=== PATIENT | male | born 1950 | race Caucasian/White ===

== ENCOUNTER → 2019-07-22 05:41 | Day surgery (SDC) | payer MEDICARE, BC ==
--- NOTE | 2019-07-17 08:20 | HP ---
CC: Dr. Cartagena * ADMITTING HISTORY AND PHYSICAL: DATE OF ADMISSION: 07/22/19 ADMITTING DIAGNOSES: 1. Hematuria. 2. Bladder lesion. 3. Lesion, prostatic urethra. PLANNED PROCEDURE: Cystoscopy, bladder biopsies, and transurethral resection of prostatic urethral lesion. SURGEON: Dr. Paredes. HISTORY OF PRESENT ILLNESS: Raul Lara is a 69-year-old gentleman, who I had originally evaluated a few months ago because of an episode of gross hematuria. Cystoscopy at that time had revealed a moderately enlarged prostate with a polypoid lesion near the anterior bladder neck, which at that time to me looked like it was part of the benign prostatic enlargement. He was recently seen and had had another episode of gross hematuria after heavy lifting and a repeat cystoscopy showed the persistent polypoid lesion at the anterior bladder neck, in addition there is a small area of hyperemic mucosa in the posterior bladder wall. He is now being brought in for biopsies of the above-described lesions. PAST MEDICAL HISTORY: Unremarkable. PAST SURGICAL HISTORY: Unremarkable. MEDICATIONS ON ADMISSION: Alfuzosin extended release 10 mg a day. ALLERGIES: PENICILLIN (facial swelling). FAMILY HISTORY: Negative for prostate or bladder cancer. SOCIAL HISTORY: Smoking history: He is a former smoker, who quit 40 years ago , with a 5 to 6-pack year smoking history prior to that. REVIEW OF SYSTEMS: He is otherwise in excellent health. There is no history of diabetes mellitus or any other major systemic illness. PHYSICAL EXAMINATION GENERAL: Reveals a pleasant, middle-aged gentleman. VITAL SIGNS: Blood pressure is 150/90, pulse 62 per minute and regular, temperature 97.1, oxygen saturation 98% on room air. LUNGS: Clear bilaterally. CARDIOVASCULAR: Regular rate and rhythm. S1, S2. ABDOMEN: Soft without masses. IMPRESSION: A 69-year-old gentleman with history of episodic gross hematuria, who has a polypoid lesion at the anterior bladder neck, which may be arising from the prostate and an additional area in the posterior bladder wall of hyperemic mucosa. PLAN: Cystoscopy, bladder biopsies, and transurethral resection of prostatic urethral lesion. [id number] #: [id number] MTDD
[~2019-07-22 05:41] MED LIST: Buffered Lidocaine 1% SYRIN* 1 ML/SYRINGE INTRADERM ONE; Chloroprocaine 2%* 20 ML VIAL ONE; Dexamethasone IV* 4 MG/ML 1 ML (4 MG) IV SLOW PU ONE; Dexamethasone IV* 4 MG/ML 1 ML (4 MG) ONE; Famotidine IV* 10 MG/ML 2 ML (20 mg) IV ONE; Famotidine IV* 10 MG/ML 2 ML (20 mg) ONE; Furosemide IV* 10 MG/ML 2 ML VIAL (20 MG) ONE; Lactated Ringers 1000 ML Bag* 1,000 ML IV SCH; Levofloxacin 500 MG IVPREMIX(* 500 MG/100 ML BAG IVPB ONE; Lidocaine 2% JELLY* 6 ML JELLY TOPICAL ONE; Midazolam* 1 MG/ML 5 ML VIAL (5 MG) ONE; Naloxone* 0.4 MG/ML 1 ML VIAL IV PRN; Ondansetron INJ* 2 MG/ML VIAL IV PRN; fentaNYL* 50 MCG/ML 2 ML VIAL (100 MCG VIAL) IV PRN; oxyCODONE/Acetamin 5/325 MG* TAB PO PRN
[2019-07-22 09:47] VITALS: BP 128/81
--- NOTE | 2019-07-22 09:59 | OP ---
CC: Dr. Cartagena * DATE OF OPERATION: 07/22/19 - [facility] DATE OF : 54 SURGEON: Dr. Paredes. ANESTHESIOLOGIST: Dr. Moreno ANESTHESIA: Spinal. PRE-OP DIAGNOSES: 1. Gross hematuria. 2. Bladder-prostate lesion. POST-OP DIAGNOSES: 1. Gross hematuria. 2. Bladder-prostate lesion. OPERATIVE PROCEDURES: Cystoscopy, transurethral resection of bladder-prostate lesion. COMPLICATIONS: None. ESTIMATED BLOOD LOSS: Less than 25 cc. CATHETER: 22-[place] Oseguera. POSTOPERATIVE CONDITION: Stable. OPERATIVE FINDINGS: 1. Normal-appearing bladder with resolution of the previously noted abnormality in the wall of the bladder. 2. Polypoid lesion anterior bladder neck most likely representing benign prostatic hypertrophy. INDICATIONS: Raul Lara is a 69-year-old gentleman who has had intermittent episodes of gross hematuria. I suspect that the bleeding is related to a significant degree of benign prostatic hypertrophy, but he continues to have a persistent abnormality at the anterior bladder neck where there is a small polypoid lesion, which I suspect is part of the overall process of BPH. Because of the recurrence of the episodes of hematuria, he is now being brought in for transurethral resection and biopsies of this lesion. In addition, he has a small area of abnormality in the posterior bladder wall, which may just represent a small transient inflammatory lesion. DESCRIPTION OF PROCEDURE: After induction of spinal anesthesia, the patient was placed in dorsal lithotomy position. Sequential compression devices were in place and functioning. Initial cystoscopy revealed a normal-appearing urethra. The prostate is significantly enlarged with enlargement of the lateral lobes as well as significant median lobe enlargement. The bladder was examined. The right and left ureteral orifices are normal in position and configuration with clear efflux noted. The bladder serna were carefully examined. The previously noted area of hyperemia noted in the posterior bladder wall appears to have resolved and there was no evidence of any mucosal abnormality involving the bladder. Attention was directed to the bladder neck where the polypoid lesion was noted at the anterior bladder neck. On closer inspection to me, it seems that this is probably part of the process of BPH. Using the resectoscope, this area was carefully resected and sent for histopathology. Hemostasis was secured using the coagulating current. At the end of the procedure, hemostasis appeared satisfactory. Depending on the histopathology, if this is BPH and he continues to have hematuria then he may benefit either from 5-alpha reductase inhibitors such as Avodart to try to reduce the prostate size and vascularity or from a formal transurethral resection of the process. A 22-[place] Oseguera was placed for temporary bladder drainage. The patient tolerated the procedure satisfactorily and was transferred back to the recovery area in stable condition. [id number] #: [id number] MTDD
== END | disposition home or self-care (01) ==
LOC: OR 05:41
PROVIDERS: ATTEND Urology
DX: N32.89 Other specified disorders of bladder (principal); R31.0 Gross hematuria; N40.0 Benign prostatic hyperplasia without lower urinary tract symptoms
CPT/HCPCS: 88305; J1100; J1940; J1956; J2250; J2400

== ENCOUNTER 2022-09-06 08:15 | Observation (INO) ==
[~2022-09-06 08:15] MED LIST changes: +Buffered Lidocaine 1% SYRIN 1 ml INTRADERM ONE; -Buffered Lidocaine 1% SYRIN* 1 ML/SYRINGE INTRADERM ONE; -Chloroprocaine 2%* 20 ML VIAL ONE; -Dexamethasone IV* 4 MG/ML 1 ML (4 MG) IV SLOW PU ONE; -Dexamethasone IV* 4 MG/ML 1 ML (4 MG) ONE; +Famotidine IV 10 MG/ML 2 ml VIAL (20 mg) IV ONE; -Famotidine IV* 10 MG/ML 2 ML (20 mg) IV ONE; -Famotidine IV* 10 MG/ML 2 ML (20 mg) ONE; -Furosemide IV* 10 MG/ML 2 ML VIAL (20 MG) ONE; -Lactated Ringers 1000 ML Bag* 1,000 ML IV SCH; +Lactated Ringers 1000 ml BAG 1,000 ML IV SCH; -Levofloxacin 500 MG IVPREMIX(* 500 MG/100 ML BAG IVPB ONE; -Lidocaine 2% JELLY* 6 ML JELLY TOPICAL ONE; -Midazolam* 1 MG/ML 5 ML VIAL (5 MG) ONE; -Naloxone* 0.4 MG/ML 1 ML VIAL IV PRN; -Ondansetron INJ* 2 MG/ML VIAL IV PRN; -fentaNYL* 50 MCG/ML 2 ML VIAL (100 MCG VIAL) IV PRN; -oxyCODONE/Acetamin 5/325 MG* TAB PO PRN
[2022-09-06] MEDS ORDERED: Clindamycin 900 MG/D5W BAG 900 MG/50 ML BAG IVPB ONE (09:02)
[2022-09-06] MEDS ORDERED: Famotidine IV 10 MG/ML 2 ml VIAL (20 mg) ONE (09:03)
[2022-09-06] MEDS ORDERED: fentaNYL 100 mcg/2 ml 50 MCG/ML VIAL ONE ×2 (09:40→09:44)
[2022-09-06] MEDS ORDERED: Ondansetron 4 mg VIAL 2 MG/ML 2 ml VIAL ONE (09:40)
[2022-09-06] MEDS ORDERED: Midazolam 5 mg/5 ml VIAL 1 mg/ml 5 ml VIAL (5 mg) ONE ×2 (09:40→09:44)
[2022-09-06] MEDS ORDERED: Lidocaine 2% PF 5 ML VIAL ONE ×2 (09:40→09:45)
[2022-09-06] MEDS ORDERED: Dexamethasone IV 4 MG/ML VIAL 1 ml VIAL ONE (09:40)
[2022-09-06] MEDS ORDERED: ROPIVACAINE 5 MG/ML 30 ML BTL (0.5%) ONE (09:45)
[2022-09-06] MEDS ORDERED: Acetaminophen IV 1 GM/100ML 1,000 MG/100 ML BAG IV ONE (11:06)
[2022-09-06] MEDS ORDERED: Ondansetron 4 mg VIAL 2 MG/ML 2 ml VIAL IV PRN ×2 (11:39→14:24)
[2022-09-06] MEDS ORDERED: Naloxone 0.4 mg VIAL 0.4 mg/ml 1 ml VIAL IV PRN (11:39)
[2022-09-06] MEDS ORDERED: fentaNYL 100 mcg/2 ml 50 MCG/ML VIAL IV PRN (11:39)
[2022-09-06] MEDS ORDERED: Phenylephrine IV 10 MG/ML 1 ml VIAL ONE (11:43)
[2022-09-06] MEDS ORDERED: Ropivacaine 5 MG/ML 20 ML VIAL 0.5% (100 MG) ONE (11:47)
[2022-09-06] MEDS ORDERED: Propofol 10 MG/ML 20 ML BTL ONE (12:47)
[2022-09-06] MEDS ORDERED: Magnesium Hydroxide LIQ 30 ML UDC PO PRN (14:24)
[2022-09-06] MEDS ORDERED: Morphine 2 MG/ML SYRINGE IV PRN (14:24)
[2022-09-06] MEDS ORDERED: Ondansetron ODT 4 mg TAB 4 MG TAB PO PRN (14:24)
[2022-09-06] MEDS ORDERED: Lactulose 30 ml UDC PO PRN (14:24)
[2022-09-06] MEDS: Lactated Ringers 1000 ml BAG 1,000 ML IV SCH (16:18)
[2022-09-06 16:42] LABS: Hematocrit 40 % (42-52); Hemoglobin 12.6 g/dL (14.0-18.0); Red Blood Count 6.18 10^6 /uL (4.18-5.48); White Blood Count 9.8 10^3/uL (3.5-10.8)
[2022-09-06 17:31] LABS: Calcium 9.2 mg/dL (8.6-10.3); Magnesium 2.3 mg/dL (1.9-2.7); Potassium 5.1 mmol/L (3.5-5.0)
[2022-09-06 18:06] LABS: ABS Basophils 0.1 10^3/ul (0-0.2); ABS Lymphocytes 0.8 10^3/ul (1.0-4.8); ABS Monocytes 0.1 10^3/ul (0-0.8); ABS Neutrophils 8.8 10^3/ul (1.5-7.7); Eosinophil % 0.2 %; Lymphocyte % 8.2 %; Mean Corpuscular HGB Conc 32 g/dL (31-36); Mean Corpuscular Hemoglobin 20 pg (27-31); Mean Corpuscular Volume 65 fL (80-94); Mean Platelet Volume 7.7 fL (7.4-10.4); Nucleated Red Blood Cells % 0.1; Platelet Count 205 10^3/uL (150-450); Red Cell Distribution Width 16 % (10-15)
[2022-09-06] MEDS: Clindamycin 600 MG/D5W BAG 600 MG/50 ML BAG IV SCH (19:51)
[2022-09-06] MEDS: Magnesium Hydroxide LIQ 30 ML UDC PO SCH (20:49)
[2022-09-07] MEDS: Lactated Ringers 1000 ml BAG 1,000 ML IV SCH (03:19)
[2022-09-07] MEDS: Clindamycin 600 MG/D5W BAG 600 MG/50 ML BAG IV SCH (04:21)
[2022-09-07 06:49] LABS: Hematocrit 33 % (42-52); Hemoglobin 10.2 g/dL (14.0-18.0); Mean Platelet Volume 8.3 fL (7.4-10.4); Platelet Count 193 10^3/uL (150-450)
[2022-09-07 07:09] LABS: Calcium 8.7 mg/dL (8.6-10.3); Potassium 4.5 mmol/L (3.5-5.0); eGFR CKD-EPI 79.1 (>60)
[2022-09-07 07:43] VITALS: BP 120/68
[2022-09-07] MEDS ORDERED: Vitamin THERAPEUTIC TAB PO SCH (09:00)
[2022-09-07] MEDS: Magnesium Hydroxide LIQ 30 ML UDC PO SCH (10:07)
== END 2022-09-07 14:28 | disposition home or self-care (01) ==
LOC: SSU → AA 08:15 → INTOOBSV 08:15
PROVIDERS: ADMIT Orthopaedic Surgery Adult Reconstructive Orthopaedic Surgery; ATTEND Orthopaedic Surgery Adult Reconstructive Orthopaedic Surgery